=== PATIENT | male | born 2005 | race Hispanic/Latino ===

== ENCOUNTER 2024-11-08 16:48 | Emergency (ER) | payer OTHER ==
[~2024-11-08] VITALS: Ht 162.6 cm; Wt 83.9 kg
[2024-11-08 18:33] VITALS: PULSE 72; RESP 18; TEMP 98.3; O2SAT 100
[2024-11-08] MEDS ORDERED: ONDANSETRON ODT4 MG PO (18:47)
== END 2024-11-08 19:00 | disposition home or self-care (01) ==
LOC: ER 18:36
DX: R51.9 Headache, unspecified (principal); S06.0X0A Concussion without loss of consciousness, initial encounter; M54.50 Low back pain, unspecified; V42.5XXA Car driver injured in collision with two- or three-wheeled motor vehicle in traffic accident, initial encounter; Y92.488 Other paved roadways as the place of occurrence of the external cause
CPT/HCPCS: 99282